=== PATIENT | female | born 1960 | race Caucasian/White ===

== ENCOUNTER 2024-07-11 21:10 | Emergency (ER) | payer OTHER, SELFPAY ==
[2024-07-11 21:12] VITALS: BP 180/100
[2024-07-11 21:42] VITALS: BP 145/84; BMI 37.1
[2024-07-11 22:00] VITALS: BP 133/69
--- NOTE | 2024-07-11 22:13 | ED.GENMED ---
History of Present Illness
<Yony Solomon MD, Resident - Last Filed: 07/12/24 00:22>
General
Chief Complaint: Blood Pressure Problem
Source: patient and family
Time Seen by Provider: 07/11/24 22:06
Travel History
Have you traveled to any high risk areas for coronavirus over the past 14 days?: No
Have you had any contact with someone who has COVID-19?: No
Do you have any symptoms of coronavirus? Fever > 100 degrees, chills, cough, shortness of breath, sore throat, loss of taste or smell, muscle aches, or headache?: No
History of Present Illness
History of Present Illness:
Giselle River, 64-year-old female with hypertension and anxiety, has noted increased home blood pressure readings over the past few days. She was switched from amlodipine to losartan 25 mg 2 months ago, and has been compliant with taking it. She is
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 The latter readings have been elevated into 150s/90s. Today it was 180/100. She has also noted right lower extremity edema over the past couple of days; does not
have baseline lower extremity edema. Denies any chest pain, tightness, shortness of breath, lightheadedness, dizziness, blurry vision, hearing changes, abdominal or back pain. Denies recent illnesses or changes to her health.
Past History
<Yony Solomon MD, Resident - Last Filed: 07/12/24 00:22>
Past History
ED Past Medical History: Other (asthma; generalized anxiety disorder; essential hypertension)
ED Past Surgical History: Other (lumpectomy; tubal ligation)
Social History
Tobacco: Non-smoker
Alcohol: Occasional
Drug: None
Employment: Retired (nurse)
Review of Systems
<Yony Solomon MD, Resident - Last Filed: 07/12/24 00:22>
Review of Systems
All Other Systems: Not applicable
Constitutional: Reports no symptoms
EENT: Reports no symptoms
Respiratory: Reports no symptoms
Cardiac: Reports no symptoms
ABD/GI: Reports no symptoms
: Reports no symptoms
Musculoskeletal: Reports no symptoms
Skin: Reports no symptoms
Neurological: Reports no symptoms
Endocrine: Reports no symptoms
Hematologic/Lymphatic: Reports no symptoms
Psychiatric: Reports no symptoms
Phy Exam
<Yony Solomon MD, Resident - Last Filed: 07/12/24 00:22>
General Physical Exam
General Presentation: well appearing and no apparent distress
General Skin: warm and dry
General Habitus: normal
General Mental: alert
General Hydration: appears well hydrated
ENT Exam
ENT Exam: EOMI, pharynx normal, neck supple and normocephalic
Eye Exam
Eye Exam: PERRL, cornea clear and conjunctiva normal
Cardiovascular Exam
Cardiovascular Exam: regular rate/rhythm, no edema, no murmur and normal peripheral pulses
Pulmonary Exam
Pulmonary Exam: lungs clear, no respiratory distress, no rales, no crackles, no rhonchi, no stridor, no wheezing and no cough
Gastrointestinal Exam
Gastrointestinal Exam: normal bowel sounds, non tender, soft, no organomegaly, no pulsatile mass and non distended
Neurological Exam
Neurological Exam: alert, oriented x3, no motor deficits and speech normal
Musculoskeletal Exam
Musculoskeletal Exam: full ROM and edema (RLE > LLE)
Skin Exam
Skin Exam: normal color, warm/dry, no rash and no petechia
Psychiatric Exam
Psychiatric Exam: normal mood/affect
Course
<Yony Solomon MD, Resident - Last Filed: 07/12/24 00:22>
Orders/Labs/Results
Orders:
Orders
10/12/24 22:37
US Periph Venous LOWER Ext RT Urgent
Comment:
Reason For Exam: swelling
07/11/24 22:44
Basic Metabolic Panel Urgent
Complete Blood Count/No Diff Urgent
07/11/24 22:44
07/11/24 22:44
Vital Signs
Initial and Last Documented VS:
Initial Vital Signs
Temp Pulse Resp BP Pulse Ox
36.5 C 92 22 180/100 100
07/11/24 21:12 07/11/24 21:12 07/11/24 21:12 07/11/24 21:12 07/11/24 21:12
Last Documented Vital Signs
Temp Pulse Resp BP Pulse Ox
97.7 F 74 16 139/76 100
07/11/24 21:12 07/12/24 00:20 07/12/24 00:20 07/12/24 00:20 07/12/24 00:20
<Peewee Yao MD - Last Filed: 07/12/24 00:23>
Orders/Labs/Results
Orders:
Orders
07/11/24 22:37
US Periph Venous LOWER Ext RT Urgent
Comment:
Reason For Exam: swelling
07/11/24 22:44
Basic Metabolic Panel Urgent
Complete Blood Count/No Diff Urgent
07/11/24 22:44
07/11/24 22:44
Vital Signs
Initial and Last Documented VS:
Initial Vital Signs
Temp Pulse Resp BP Pulse Ox
36.5 C 92 22 180/100 100
07/11/24 21:12 07/11/24 21:12 07/11/24 21:12 07/11/24 21:12 07/11/24 21:12
Last Documented Vital Signs
Temp Pulse Resp BP Pulse Ox
97.7 F 74 16 139/76 100
07/11/24 21:12 07/12/24 00:20 07/12/24 00:20 07/12/24 00:20 07/12/24 00:20
<Yony Solomon MD, Resident - Last Filed: 07/12/24 00:22>
*Critical Care Note
Total Time (30-74mins, 75-104mins- exclusive of procedures): Not Applicable
ED Attending Note
<Yony Solomon MD, Resident - Last Filed: 07/12/24 00:22>
-
Portions of this chart may have been created with voice recognition software.� Occasional wrong word or��sound alike� substitutions may have occurred due to the inherent limitations of voice recognition software.
<Peewee Yao MD - Last Filed: 07/12/24 00:23>
ED Attending Note
Patient seen and examined by attending physician: Yes
I performed a history and physical exam of patient and discussed management with resident, I reviewed resident's note and agree with documented findings and plan of care.: Yes
ED Attending Note:
I have seen and evaluated the patient with a [id number] encounter. I have spoken to the resident and involved in the medical history, the physical exam, medical decision making.
Evaluation and management service: agree unless noted differently below.
Results interpretation: agree unless noted differently below.
Focused HPI: 64-year-old female with past medical history of hypertension, asthma who presents to the emergency room for evaluation of hypertension; she was incidentally noted to have lower leg swelling as well on exam. Patient reports that she was
started on blood pressure medication a few weeks ago but has occasionally had spikes in her blood pressure. Tonight checked her blood pressure and it was 180/100 and came to the ER for evaluation. She denies any symptoms�no chest pain, headache,
shortness of breath, change in vision or speech. No focal weakness or numbness. She reports compliance with her blood pressure medication (losartan 25 mg p.o. she takes in the morning). She does admit that she had [place] hoagie for lunch.
Incidentally noted to have some swelling in the right lower leg on exam�she says it is not painful but has been slightly swollen for the past few days to a week. No trauma. Only pertinent recent history was treatment for a dental infection on
amoxicillin�this has completely resolved and she is finished antibiotics.
Physical exam: Awake alert not in distress. Hypertension in triage has normalized by my assessment. Rest of vitals normal. She does have some trace edema right lower extremity lower calf and ankle. No erythema or warmth, tenderness. Good pulses
in the right lower extremity.
Medical Decision Makin-year-old female presents for asymptomatic hypertension, incidentally noted to have right lower leg swelling as well. Blood pressure has normalized by my assessment. She admits to a salty lunch which likely accounts for
spike in blood pressure. Check screening labs to evaluate renal function. For right lower leg swelling will check an ultrasound to rule out DVT.
Labs reviewed and unremarkable�renal function normal. 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 Stable for discharge, I had a long discussion with the patient about monitoring salt intake. Hold on adjustments to blood pressure
medication for now given that her blood pressure has normalized without intervention. She will follow-up with her PCP. We spoke about return precautions and all questions answered.
Discharge Plan
Departure
Patient Disposition: Home (Routine Discharge)
Date of Disposition: 07/12/24
Time of Disposition: 00:16
Patient with high blood pressure during this ER visit?: Yes
Discharge Problem:
Hypertension, Dependent edema
Instructions: BLOOD PRESSURE
Referrals:
Mackenzie Clark CRNP [Family Provider] - Follow up in 5-7 days
Activity Restrictions/Additional Instructions:
Thank you for visiting the Emergency Department at [facility].
1. Please schedule a follow up appointment as directed. Call first thing tomorrow morning to make an appointment.
2. If indicated, please take your medications as instructed and indicated on discharge paperwork.
3. If any of your symptoms do not improve, or persist, or become more severe within 6-12 hours, please return to the emergency department for further care.
4. Please return to the emergency department if you develop a headache, neck pain/stiffness, fever greater than 100.4F, chest pain, shortness of breath, persistent nausea, vomiting, slurred speech, difficulty walking, numbness/tingling, weakness,
signs of infection or any other symptoms that are worrisome to you.
Please call [phone] if you have any questions.
Interventions
Interventions:
*Risk Screen - Suicide Last Done: 07/11/24 21:12
*General Assessment Last Done: 07/11/24 21:43
*Neglect/Abuse Screening Last Done: 07/11/24 21:12
ED- Cardiac Assessment Last Done: 07/11/24 21:43
ED- Neurological Assessment Last Done: 07/11/24 21:43
ED- Pulmonary Assessment Last Done: 07/11/24 21:43
Discharge Date and Time
Print Language: HUNGARIAN
[2024-07-11 22:52] LABS: Hematocrit 38.6 % (37.0-47.0); Hemoglobin 13.2 g/dL (12.0-16.0); Mean Corp Hgb Conc. 34.2 g/dL (33.0-37.0); Mean Corpuscular Hgb 30.3 pg (27.0-31.0); Mean Corpuscular Volume 88.7 fL (81.0-99.0); Mean Platelet Volume 10.1 fL (7.4-10.4); Platelet Count 271 10^3/uL (130-400); Red Blood Cell Count 4.35 10^6/uL (4.20-5.40); Red Cell Dist. Width 13.2 % (11.5-14.5); White Blood Cell Count 8.1 10^3/uL (4.8-10.8)
[2024-07-11 23:22] LABS: Blood Urea Nitrogen 17 mg/dl (7-17); Calcium 9.2 mg/dl (8.4-10.2); Carbon Dioxide 25 mmol/L (22-30); Chloride 107 mmol/L (98-107); Estimated Creatinine Clearance 83 ml/min; Glucose 98 mg/dl (70-99); Potassium 4.2 mmol/L (3.5-5.1); Sodium 143 mmol/L (135-145); eGFR > 60.00
[2024-07-12 00:20] VITALS: BP 139/76
== END 2024-07-12 00:31 | disposition home or self-care (01) ==
LOC: EMR 21:10
PROVIDERS: EMERGENCY PHYSICIAN Emergency Medicine; FAMILY PHYSICIAN Nurse Practitioner Family
DX: R60.0 Localized edema (principal); I10 Essential (primary) hypertension
CPT/HCPCS: 99284; 80048; 85027; 93971

== ENCOUNTER 2024-09-28 06:58 | Outpatient (RCR) | payer OTHER, SELFPAY | END 2024-09-28 23:59 | disposition home or self-care (01) | LOC: RPT 06:58 | PROVIDERS: ATTENDING PHYSICIAN Nurse Practitioner Family | DX: M25.561 Pain in right knee (principal); Z73.6 Limitation of activities due to disability; R26.2 Difficulty in walking, not elsewhere classified; M62.81 Muscle weakness (generalized); M71.21 Synovial cyst of popliteal space [Baker], right knee | CPT/HCPCS: 97010; 97110; 97162 ==

== ENCOUNTER → 2024-10-08 09:05 | Outpatient (REF) | payer OTHER, SELFPAY | LOC: RAD 09:05 | PROVIDERS: ATTENDING PHYSICIAN Nurse Practitioner Family | DX: N95.0 Postmenopausal bleeding (principal) | CPT/HCPCS: 76830; 76856 ==

== ENCOUNTER 2024-10-26 07:03 | Outpatient (RCR) | payer OTHER, SELFPAY | END 2024-10-26 23:59 | disposition home or self-care (01) | LOC: RPT 07:03 | PROVIDERS: ATTENDING PHYSICIAN Nurse Practitioner Family | DX: M25.561 Pain in right knee (principal); Z73.6 Limitation of activities due to disability; R26.2 Difficulty in walking, not elsewhere classified; M62.81 Muscle weakness (generalized); M71.21 Synovial cyst of popliteal space [Baker], right knee | CPT/HCPCS: 97010; 97110 ==

== ENCOUNTER 2024-11-23 06:52 | Outpatient (RCR) | payer OTHER, SELFPAY | END 2024-11-23 23:59 | disposition home or self-care (01) | LOC: RPT 06:52 | PROVIDERS: ATTENDING PHYSICIAN Nurse Practitioner Family | DX: M25.561 Pain in right knee (principal); Z73.6 Limitation of activities due to disability; R26.2 Difficulty in walking, not elsewhere classified; M62.81 Muscle weakness (generalized); M71.21 Synovial cyst of popliteal space [Baker], right knee | CPT/HCPCS: 97010; 97110; 97112 ==

== ENCOUNTER → 2024-12-04 14:45 | Outpatient (REF) | payer OTHER, SELFPAY | LOC: WDC 14:45 | PROVIDERS: ATTENDING PHYSICIAN Nurse Practitioner Family | DX: Z12.31 Encounter for screening mammogram for malignant neoplasm of breast (principal) | CPT/HCPCS: 77063; 77067 ==